=== PATIENT | male | born 1950 | race Caucasian/White ===

== ENCOUNTER 2021-08-22 11:07 | Emergency (ER) | payer MEDICARE ==
[2021-08-22] MEDS ORDERED: Heparin Sodium 5,000 Units/ML Vial IVPUSH ONE (11:46)
[2021-08-22] MEDS ORDERED: Aspirin 81 MG Tab.Chew ONE (11:46)
[2021-08-22] MEDS: Aspirin 81 MG Tab.Chew PO ONE ×3 (11:56→12:02)
[2021-08-22] MEDS ORDERED: Sodium Chloride 0.9% 1,000 ML IV SCH (12:00)
[2021-08-22] MEDS ORDERED: Heparin Sodium/D5W 25,000 UNITS/500 ML BAG IV SCH (12:00)
[2021-08-22 12:20] VITALS: BP 86/47; PULSE 48
== END 2021-08-22 12:42 | disposition other institution (70) ==
LOC: JP.ED 11:07
DX: I21.3 ST elevation (STEMI) myocardial infarction of unspecified site (principal); E78.00 Pure hypercholesterolemia, unspecified; I10 Essential (primary) hypertension; E11.9 Type 2 diabetes mellitus without complications; K21.9 Gastro-esophageal reflux disease without esophagitis; N40.0 Benign prostatic hyperplasia without lower urinary tract symptoms; E66.9 Obesity, unspecified; Z68.28 Body mass index [BMI] 28.0-28.9, adult; Z88.8 Allergy status to other drugs, medicaments and biological substances
CPT/HCPCS: 36415; 80053; 84484; 85025; 93005; 93010; 96374; 99285; 99285-25; A9270-GY; J1644; J7030

== ENCOUNTER 2022-12-26 16:21 | Emergency (ER) | payer MEDICARE ==
[2022-12-26 16:32] VITALS: BP 150/74; PULSE 78
[2022-12-26] MEDS ORDERED: Glucagon,Human Recombinant 1 MG Vial IM ONE (17:12)
== END 2022-12-26 18:25 | disposition home or self-care (01) ==
LOC: JP.ED 16:21
DX: T18.128A Food in esophagus causing other injury, initial encounter (principal); E78.00 Pure hypercholesterolemia, unspecified; E11.9 Type 2 diabetes mellitus without complications; I25.2 Old myocardial infarction; E66.9 Obesity, unspecified; Z68.28 Body mass index [BMI] 28.0-28.9, adult; Z88.8 Allergy status to other drugs, medicaments and biological substances; Z79.82 Long term (current) use of aspirin; Z79.84 Long term (current) use of oral hypoglycemic drugs; Z79.899 Other long term (current) drug therapy
CPT/HCPCS: 71046; 96372; 99283; J1610

== ENCOUNTER 2025-01-30 09:17 | Day surgery (SDC) | payer MEDICARE ==
[~2025-01-30 09:17] MED LIST: Dexamethasone 4 MG/ML SDV ONE; Glycopyrrolate 0.2 MG/ML 5 ML MDV ONE; Ondansetron 4 MG/2 ML SDV ONE; Propofol 200 MG/20 ML SDV ONE; Succinylcholine 200 MG/10 ML MDV ONE; fentaNYL 250 MCG/5 ML SDV ONE
[2025-01-30 09:44] LABS: PLATELET COUNT,PLT 270.0 K/uL (130-375); RED BLOOD CELL COUNT 4.35 M/uL (4.14-5.76); WHITE BLOOD CELL COUNT,WBC 6.9 K/uL (3.2-11.0)
[2025-01-30] MEDS: Nozin Nasal Sanitizer NASBOTH ONE (09:54)
[2025-01-30 09:58] LABS: BLOOD UREA NITROGEN,BUN 26.0 mg/dL (7-18); CARBON DIOXIDE,CO2 26.0 mmol/L (21-32); CHLORIDE,CL 102.0 mmol/L (100-108); CREATININE 0.9 mg/dL (0.8-1.3); EST CRCL DRUG DOSING (CG) 74.35 mL/min; ESTIMATED GFR 90.0 mL/min (>60); GLUCOSE RANDOM 175.0 mg/dL (74-106); POTASSIUM,K 4.3 mmol/L (3.6-5.2); SODIUM,NA 138.0 mmol/L (140-148)
[2025-01-30] MEDS: Lactated Ringers 1,000 ML IV SCH (10:27)
[2025-01-30] MEDS ORDERED: Lactated Ringers 1,000 ML ONE (12:25)
[2025-01-30 15:53] VITALS: BP 123/68; PULSE 67
== END 2025-01-30 15:55 | disposition home or self-care (01) ==
LOC: JP.SDS 09:17
PROVIDERS: ATTEND Specialist
DX: M75.122 Complete rotator cuff tear or rupture of left shoulder, not specified as traumatic (principal); M75.02 Adhesive capsulitis of left shoulder; M75.22 Bicipital tendinitis, left shoulder; I25.10 Atherosclerotic heart disease of native coronary artery without angina pectoris; E11.9 Type 2 diabetes mellitus without complications; I10 Essential (primary) hypertension; E78.5 Hyperlipidemia, unspecified; Z79.82 Long term (current) use of aspirin; Z79.84 Long term (current) use of oral hypoglycemic drugs; Z79.899 Other long term (current) drug therapy
CPT/HCPCS: 01630; 23700; 29822; 29826; 29827; 36415; 80048; 85027; A9270; C1713; J0330; J0665; J0690; J1100; J1596; J2405; J2704; J2710; J3010; J7120; J3490